=== PATIENT | male | born 1945 | race African-American/Black ===

== ENCOUNTER 2024-03-13 11:00 | Emergency (ER) | payer OTHER ==
[2024-03-13 12:31] LABS: Hemoglobin 3.9 g/dL (14.0-18.0); Mean Corpuscular HGB CONC 27.8 g/dL (32.0-36.0); Mean Corpuscular Hemoglobin 21.6 pg (27.0-31.0); Mean Corpuscular Volume 77.7 fl (78.0-98.0); Red Blood Cell (RBC) Count 1.81 mill/uL (4.70-6.10); White Blood Cell (WBC) Count 7.9 10x3/uL (4.8-10.8)
[2024-03-13 12:32] LABS: Manual Diff?? YES; Mean Platelet Volume 6.2 fL (7.4-10.4); Platelet Count 325 10x3/uL (130-400)
[2024-03-13 12:36] LABS: INR-International Normal Ratio 4.2; PTT 48.6 sec (22.9-36.1); Prothrombin Time 40.8 sec (12.0-14.7)
[2024-03-13 12:41] LABS: Anisocytosis MARKED = >30 cells (100X) (0-5/hpf); Hypochromia MARKED = >30 cells (100X) (0-5/hpf); Lymphocytes 31 % (21-51); MDiff Complete? YES; Macrocytosis SLIGHT = 6-15 cells (100X) (0-5/hpf); Microcytosis MODERATE=15-30 cells (100X) (0-5/hpf); Monocytes 17 % (0-10); Neutrophil 52 % (42-75); Poikilocytosis MARKED = >30 cells (100X) (0-5/hpf); Target Cells MODERATE= 6-15 cells (100X) (0-1/hpf)
[2024-03-13 12:42] LABS: Platelet Adequacy Comment Appears Adequate; Schistocytes SLIGHT = 2-5 cells (100X) (0-1/hpf); Troponin I 0.107 ng/mL (< 0.028)
[2024-03-13 12:45] LABS: ALT (SGPT) 22 U/L (8-55); AST (SGOT) 47 U/L (5-34); Albumin 3.1 g/dL (3.4-4.8); Alkaline Phosphatase 87 U/L (40-110); Anion Gap 19 mmol/L (10-20); BUN (Urea Nitrogen) 60 mg/dL (8.4-25.7); Bilirubin, Total 0.6 mg/dL (0.2-1.2); Calc. Creatinine Clearance 0 mL/min (70-130); Calcium 8.8 mg/dL (7.8-10.44); Carbon Dioxide 21 mmol/L (23-31); Chloride 106 mmol/L (98-107); Estimated GFR 19; Globulin 3.1 g/dL (2.4-3.5); Glucose 119 mg/dL (83-110); Potassium 4.9 mmol/L (3.5-5.1); Protein, Total 6.2 g/dL (5.8-8.1); Sodium 141 mmol/L (136-145)
[2024-03-13] MEDS ORDERED: Sodium Chloride 0.9% 500 ML ONE ×2 (13:58→17:03)
[2024-03-13 16:01] LABS: Troponin I 0.111 ng/mL (< 0.028)
[2024-03-13] MEDS ORDERED: Pantoprazole 40 MG VIAL ONE (17:39)
== END 2024-03-13 17:45 | disposition short-term general hospital (02) ==
LOC: NAV ERS 11:00
DX: D62 Acute posthemorrhagic anemia (principal); K92.1 Melena; I11.0 Hypertensive heart disease with heart failure; I50.9 Heart failure, unspecified; R79.89 Other specified abnormal findings of blood chemistry; D68.9 Coagulation defect, unspecified; N28.9 Disorder of kidney and ureter, unspecified; M25.512 Pain in left shoulder; M25.562 Pain in left knee; M54.50 Low back pain, unspecified; R51.9 Headache, unspecified; E11.9 Type 2 diabetes mellitus without complications; E78.5 Hyperlipidemia, unspecified; E03.9 Hypothyroidism, unspecified; Z91.81 History of falling; Z79.890 Hormone replacement therapy; Z79.82 Long term (current) use of aspirin; Z79.899 Other long term (current) drug therapy
CPT/HCPCS: 36430; 70450; 71046; 72100; 80053; 82274; 83880; 84484; 85025; 85610; 85730; 86850; 86900; 86901; 87428; 93005; 96374; J2470; J7030; P9016